=== PATIENT | male | born 1940 | race Two or more races ===

== ENCOUNTER 2021-08-21 09:11 | Inpatient (IN) | payer OTHER ==
[~2021-08-21] VITALS: Ht 175.3 cm; Wt 86.0 kg
[2021-08-21 10:16] LABS: Basophils # (auto) 0.1 10 ^3/uL (0-0.2); Basophils % (auto) 0.9 % (0.0-2.0); Eosinophils # (auto) 0.3 10 ^3/uL (0-0.8); Hematocrit 26.2 % (41.0-53.0); Hemoglobin 8.9 g/dL (13.5-17.5); Lymphocytes # (auto) 1.4 10 ^3/uL (0.4-5.4); Lymphocytes % (auto) 20.6 % (10.0-50.0); Mean Corpuscular Hemoglobin 29.9 pg (28.0-32.0); Mean Corpuscular Hgb Conc. 33.9 g/dL (32.0-36.0); Mean Corpuscular Volume 88.1 fL (80.0-100.0); Monocytes % (auto) 13.8 % (0.0-12.0); Neutrophils # (auto) 4.2 10 ^3/uL (1.6-8.6); Neutrophils % (auto) 60.7 % (37.0-80.0); Nucleated Red Blood Cells % 0.1 %; Red Blood Cells 2.98 10^6/uL (4.5-5.90); White Blood Cell 6.9 10^3/uL (4.4-10.8)
[2021-08-21 10:43] LABS: INR 1.05 (0.9-1.15); Partial Thromboplastin Time 33.5 sec (23.6-33.0)
[2021-08-21 11:01] LABS: Albumin 2.2 g/dL (3.4-5.0); Calcium 8.9 mg/dL (8.5-10.1); Magnesium 2.3 mg/dL (1.6-2.6); Potassium 4.2 mmol/L (3.5-5.1)
[2021-08-21 11:08] LABS: Bilirubin, Total 0.2 mg/dL (0.2-1.0); CRP High Sensitivity 7.78 mg/dL (< 0.3); Total Protein 6.2 g/dL (6.4-8.2)
[2021-08-21 11:12] LABS: Urine Bacteria NONE SEEN /hpf (None Seen); Urine Blood Negative /uL (Negative); Urine Specific Gravity 1.018 (1.001-1.035); Urine WBC 1 /hpf (0 - 3)
[2021-08-21 11:41] LABS: BUN/Creatinine Ratio 29.6
[2021-08-21] MEDS ORDERED: ENOXAPARIN SOD 40 MG/0.4 ML SYRINGE SC ONE (13:45)
[2021-08-21] MEDS ORDERED: MORPHINE SULFATE INJECTION 2 MG/ML SYRG IV PRN (13:45)
[2021-08-21] MEDS ORDERED: THIAMINE 100mg/ml INJ (200mg/2ml VIAL) IV ONE (13:45)
[2021-08-21] MEDS ORDERED: NITROGLYCERIN 0.4 MG SL TAB SL PRN (13:45)
[2021-08-21] MEDS ORDERED: PPN PER PHARMACY 0 ML IV SCH (13:45)
[2021-08-21] MEDS ORDERED: PIPERACILLIN-TAZOB 3.375GM 100 ML IV ONE (13:45)
[2021-08-21] MEDS ORDERED: DEXTROSE (50%) 50ML SYRG IV PRN (13:45)
[2021-08-21] MEDS ORDERED: HALOPERIDOL LACTATE 5 MG/ML INJ VIAL IM PRN (13:45)
[2021-08-21] MEDS ORDERED: LORazepam 2MG/ML-1ML VIAL IV ONE (14:00)
[2021-08-21] MEDS ORDERED: ACYCLOVIR 10MG/KG Q8HR PER RX 0 ML IV SCH (14:30)
[2021-08-21 14:49] LABS: Phosphorus 2.6 mg/dL (2.5-4.90)
[2021-08-21 15:11] LABS: Protein, CSF 55.8 mg/dL (15-45)
[2021-08-21 15:40] LABS: CSF White Blood Cells 1 CUMM (0-5)
[2021-08-21] MEDS: ACYCLOVIR SOD 50MG/ML 750 MG in SODIUM CHL 0.9% 250 ML IV SCH (17:51)
[2021-08-21] MEDS: ACCU-CHEK COMFORT CURVE STRIP VI SCH (18:31)
[2021-08-21] MEDS: InsuLIN REG 1unit/0.01ml Soln (100units/ml) SC SCH (18:32)
[2021-08-21] MEDS ORDERED: AMINO ACID INFUSION IN D10W 1,000 ML IV NR (20:00)
[2021-08-21] MEDS: LABETALOL HCL 5 MG/ML 4ML SYRINGE IV PRN (21:35)
[2021-08-21] MEDS: LORazepam 2MG/ML-1ML VIAL IV PRN (21:50)
[2021-08-21] MEDS: LINEZOLID 600MG/300ML 300 ML IV SCH (22:29)
[2021-08-22] MEDS: PIPERACILLIN-TAZOB 3.375GM 100 ML IV SCH ×4 (00:38→23:16)
[2021-08-22] MEDS: InsuLIN REG 1unit/0.01ml Soln (100units/ml) SC SCH ×4 (00:42→18:31)
[2021-08-22] MEDS: ACCU-CHEK COMFORT CURVE STRIP VI SCH ×4 (00:43→18:04)
[2021-08-22] MEDS: ACYCLOVIR SOD 50MG/ML 750 MG in SODIUM CHL 0.9% 250 ML IV SCH ×3 (03:30→17:47)
[2021-08-22 06:45] LABS: BUN/Creatinine Ratio 29.7; Calcium 8.5 mg/dL (8.5-10.1); Magnesium 2.1 mg/dL (1.6-2.6); Potassium 3.9 mmol/L (3.5-5.1)
[2021-08-22 06:48] LABS: Bilirubin, Total 0.2 mg/dL (0.2-1.0); Phosphorus 3.8 mg/dL (2.5-4.90); Total Protein 5.4 g/dL (6.4-8.2)
[2021-08-22] MEDS: FAMOTIDINE (10MG/ML) 2ML VL IV SCH (10:29)
[2021-08-22] MEDS: THIAMINE 100mg/ml INJ (200mg/2ml VIAL) IV SCH (10:30)
[2021-08-22] MEDS: ENOXAPARIN SOD 40 MG/0.4 ML SYRINGE SC SCH (10:32)
[2021-08-22] MEDS: hydrALAZINE HCL 20 MG/ML VL IV PRN (11:03)
[2021-08-22] MEDS: LINEZOLID 600MG/300ML 300 ML IV SCH ×2 (11:30→21:35)
[2021-08-22 12:16] LABS: % Iron Saturation 29.5 % (20-55)
[2021-08-22] MEDS: LABETALOL HCL 5 MG/ML 4ML SYRINGE IV PRN ×2 (15:29→17:02)
[2021-08-22] MEDS ORDERED: LABETALOL HCL 5 MG/ML 4ML SYRINGE IV PRN (16:30)
[2021-08-22] MEDS ORDERED: LABETALOL HCL 5 MG/ML 4ML SYRINGE IV ONE (16:30)
[2021-08-22 17:37] VITALS: BP 159/79
[2021-08-22] MEDS ORDERED: PPN PER PHARMACY IV NR ×8 (20:00)
[2021-08-22 22:00] VITALS: BP 157/71
[2021-08-22] MEDS: LORazepam 2MG/ML-1ML VIAL IV PRN (22:25)
[2021-08-23] MEDS: ACCU-CHEK COMFORT CURVE STRIP VI SCH ×4 (00:22→17:21)
[2021-08-23] MEDS: ACYCLOVIR SOD 50MG/ML 750 MG in SODIUM CHL 0.9% 250 ML IV SCH ×3 (00:22→18:11)
[2021-08-23] MEDS: InsuLIN REG 1unit/0.01ml Soln (100units/ml) SC SCH ×4 (00:23→17:22)
[2021-08-23 04:50] VITALS: BP 144/98
[2021-08-23] MEDS: PIPERACILLIN-TAZOB 3.375GM 100 ML IV SCH ×3 (05:54→22:59)
[2021-08-23 06:04] LABS: Basophils # (auto) 0 10 ^3/uL (0-0.2); Basophils % (auto) 0.5 % (0.0-2.0); Eosinophils # (auto) 0.4 10 ^3/uL (0-0.8); Eosinophils % (auto) 4.8 % (0.0-7.0); Hematocrit 25.8 % (41.0-53.0); Hemoglobin 8.8 g/dL (13.5-17.5); Lymphocytes # (auto) 1.4 10 ^3/uL (0.4-5.4); Lymphocytes % (auto) 17.7 % (10.0-50.0); Mean Corpuscular Hemoglobin 29.9 pg (28.0-32.0); Mean Corpuscular Hgb Conc. 33.9 g/dL (32.0-36.0); Mean Corpuscular Volume 88.1 fL (80.0-100.0); Monocytes # (auto) 1.1 10 ^3/uL (0-1.3); Monocytes % (auto) 14.4 % (0.0-12.0); Neutrophils # (auto) 4.8 10 ^3/uL (1.6-8.6); Neutrophils % (auto) 62.6 % (37.0-80.0); Red Blood Cells 2.93 10^6/uL (4.5-5.90); Red Cell Distribution Width 14.1 % (11.8-14.3); White Blood Cell 7.7 10^3/uL (4.4-10.8)
[2021-08-23 06:25] LABS: Albumin 2.2 g/dL (3.4-5.0); BUN/Creatinine Ratio 21.5; Calcium 8.6 mg/dL (8.5-10.1); Magnesium 1.6 mg/dL (1.6-2.6); Potassium 3.5 mmol/L (3.5-5.1)
[2021-08-23 06:27] LABS: Phosphorus 2.7 mg/dL (2.5-4.90)
[2021-08-23 09:00] VITALS: BP 144/53
[2021-08-23] MEDS: THIAMINE 100mg/ml INJ (200mg/2ml VIAL) IV SCH (09:27)
[2021-08-23] MEDS: FAMOTIDINE (10MG/ML) 2ML VL IV SCH (09:27)
[2021-08-23] MEDS: ENOXAPARIN SOD 40 MG/0.4 ML SYRINGE SC SCH (09:29)
[2021-08-23] MEDS ORDERED: MAGNESIUM SULFATE 1GM/100ML 100 ML IV ONE (10:00)
[2021-08-23] MEDS ORDERED: POTASSIUM PHOSPHATE 22 MEQ in SODIUM CHL 0.9% 100 ML IV ONE (10:30)
[2021-08-23] MEDS ORDERED: DEXTROSE (50%) 50ML SYRG IV SCH (12:00)
[2021-08-23] MEDS: LINEZOLID 600MG/300ML 300 ML IV SCH ×2 (12:47→21:38)
[2021-08-23 13:00] VITALS: BP 134/56
[2021-08-23] MEDS ORDERED: ACETAMINOPHEN 650 MG RECT SUPP PR PRN (13:00)
[2021-08-23] MEDS ORDERED: TPN PER PHARMACY 0 ML IV SCH (14:45)
[2021-08-23 17:00] VITALS: BP 145/69
[2021-08-23] MEDS: NYSTATIN (MOUTH-THROAT) 500,000 UNITS/5 ML SUSP MT SCH ×2 (18:11→22:01)
[2021-08-23] MEDS ORDERED: PPN PER PHARMACY IV NR ×11 (20:00)
[2021-08-23] MEDS: ATORVASTATIN 20 MG TAB PO SCH (21:43)
[2021-08-23 21:49] LABS: Cholesterol 108 mg/dL (< 200); HDL Cholesterol 22 mg/dL (40-59); LDL Cholesterol 75 mg/dL (< 100); Triglycerides 87 mg/dL (< 150)
[2021-08-23 21:51] VITALS: BP 169/76
[2021-08-23] MEDS ORDERED: INSULIN LANTUS (GLARGINE) 1 /0.01ml (100units/ml) SC SCH (22:00)
[2021-08-24] MEDS: ACCU-CHEK COMFORT CURVE STRIP VI SCH ×4 (00:16→19:14)
[2021-08-24] MEDS: InsuLIN REG 1unit/0.01ml Soln (100units/ml) SC SCH ×4 (00:18→18:00)
[2021-08-24] MEDS: ACYCLOVIR SOD 50MG/ML 750 MG in SODIUM CHL 0.9% 250 ML IV SCH ×3 (01:13→17:00)
[2021-08-24] MEDS: hydrALAZINE HCL 20 MG/ML VL IV PRN (01:37)
[2021-08-24 02:50] VITALS: BP 152/78
[2021-08-24] MEDS: LABETALOL HCL 5 MG/ML 4ML SYRINGE IV PRN (03:08)
[2021-08-24 04:55] VITALS: BP 152/72
[2021-08-24] MEDS: NYSTATIN (MOUTH-THROAT) 500,000 UNITS/5 ML SUSP MT SCH ×4 (06:08→22:30)
[2021-08-24 06:15] LABS: Albumin 2.2 g/dL (3.4-5.0); Calcium 8.5 mg/dL (8.5-10.1); Magnesium 1.7 mg/dL (1.6-2.6); Potassium 3.9 mmol/L (3.5-5.1)
[2021-08-24 06:20] LABS: BUN/Creatinine Ratio 18.3; Bilirubin, Total 0.6 mg/dL (0.2-1.0); Phosphorus 2.1 mg/dL (2.5-4.90); Total Protein 6.1 g/dL (6.4-8.2)
[2021-08-24] MEDS: PIPERACILLIN-TAZOB 3.375GM 100 ML IV SCH ×2 (07:10→15:35)
[2021-08-24 08:00] VITALS: BP 166/77
[2021-08-24] MEDS: ASPirin 81 mg TAB PO SCH (10:00)
[2021-08-24] MEDS: FAMOTIDINE (10MG/ML) 2ML VL IV SCH (11:05)
[2021-08-24] MEDS: THIAMINE 100mg/ml INJ (200mg/2ml VIAL) IV SCH (11:06)
[2021-08-24] MEDS: LINEZOLID 600MG/300ML 300 ML IV SCH ×2 (11:07→22:29)
[2021-08-24] MEDS: ENOXAPARIN SOD 40 MG/0.4 ML SYRINGE SC SCH (11:07)
[2021-08-24] MEDS ORDERED: SODIUM PHOSPHATES 20 MEQ in SODIUM CHL 0.9% 100 ML IV ONE (11:30)
[2021-08-24] MEDS ORDERED: FLUCONAZOLE 200MG/100ML 100 ML IV ONE (11:30)
[2021-08-24 11:44] VITALS: BP 146/63
[2021-08-24] MEDS: FLUCONAZOLE 200MG/100ML 100 ML IV SCH ×4 (12:00→20:16)
[2021-08-24 13:30] LABS: Folate (Folic Acid) 1.77 ng/mL (5.38-24)
[2021-08-24] MEDS ORDERED: MAGNESIUM SULFATE 1GM/100ML 100 ML IV ONE (14:00)
[2021-08-24 16:51] VITALS: BP 125/49
[2021-08-24 17:06] LABS: Cryptococcus Antigen CSF Negative (Negative)
[2021-08-24] MEDS ORDERED: [UNRECOGNIZED DRUG - OTHER] IV NR ×10 (20:00)
[2021-08-24] MEDS ORDERED: SODIUM CHLORIDE IV NR ×10 (20:00)
[2021-08-24] MEDS ORDERED: FAT EMULSION IV NR ×10 (20:00)
[2021-08-24] MEDS ORDERED: POTASSIUM ACETATE IV NR ×10 (20:00)
[2021-08-24 21:42] VITALS: BP 154/66
[2021-08-24] MEDS: ATORVASTATIN 20 MG TAB PO SCH (22:00)
[2021-08-24] MEDS: INSULIN LANTUS (GLARGINE) 1 /0.01ml (100units/ml) SC SCH (22:33)
[2021-08-25] MEDS: ACCU-CHEK COMFORT CURVE STRIP VI SCH ×4 (00:20→18:34)
[2021-08-25] MEDS: InsuLIN REG 1unit/0.01ml Soln (100units/ml) SC SCH ×4 (00:31→18:35)
[2021-08-25] MEDS: PIPERACILLIN-TAZOB 3.375GM 100 ML IV SCH ×3 (00:52→18:34)
[2021-08-25] MEDS: ACYCLOVIR SOD 50MG/ML 750 MG in SODIUM CHL 0.9% 250 ML IV SCH ×3 (04:18→17:00)
[2021-08-25 05:16] LABS: Hemoglobin 8.1 g/dL (13.5-17.5); Red Cell Distribution Width 14.2 % (11.8-14.3); White Blood Cell 9.1 10^3/uL (4.4-10.8)
[2021-08-25 05:20] LABS: Hematocrit 23.1 % (41.0-53.0); Mean Corpuscular Hemoglobin 30.6 pg (28.0-32.0); Mean Corpuscular Hgb Conc. 35.1 g/dL (32.0-36.0); Mean Corpuscular Volume 87.3 fL (80.0-100.0); Red Blood Cells 2.65 10^6/uL (4.5-5.90)
[2021-08-25 05:33] VITALS: BP 155/84
[2021-08-25 05:35] LABS: Basophils % (manual) 0 (0.0-2.0); Blast Cells 0; Metamyelocytes % 0; Myelocytes % 0; Promyelocytes % 0; Reactive Lymphocytes 0
[2021-08-25 05:41] LABS: Potassium 3.6 mmol/L (3.5-5.1)
[2021-08-25 05:50] LABS: Albumin 1.9 g/dL (3.4-5.0); BUN/Creatinine Ratio 17.1; Bilirubin, Total 0.3 mg/dL (0.2-1.0); Calcium 8.3 mg/dL (8.5-10.1); Magnesium 1.5 mg/dL (1.6-2.6); Phosphorus 2.1 mg/dL (2.5-4.90)
[2021-08-25] MEDS: NYSTATIN (MOUTH-THROAT) 500,000 UNITS/5 ML SUSP MT SCH ×4 (06:15→21:55)
[2021-08-25 06:54] LABS: Band Neutrophils % (manual) 1; Eosinophils % (manual) 1 (0-7); Lymphocytes % (manual) 22 (10.0-50.0); Monocytes % (manual) 12 (0-12)
[2021-08-25 08:00] VITALS: BP 161/79
[2021-08-25] MEDS: FLUCONAZOLE 200MG/100ML 100 ML IV SCH ×2 (08:39→11:07)
[2021-08-25] MEDS: FOLIC ACID 1 MG in D5W 5% 50 ML INJ SCH (08:40)
[2021-08-25] MEDS: THIAMINE 100mg/ml INJ (200mg/2ml VIAL) IV SCH (08:40)
[2021-08-25] MEDS: ASPirin 81 mg TAB PO SCH (08:41)
[2021-08-25] MEDS: ENOXAPARIN SOD 40 MG/0.4 ML SYRINGE SC SCH (08:41)
[2021-08-25] MEDS: FAMOTIDINE (10MG/ML) 2ML VL IV SCH (08:41)
[2021-08-25] MEDS: LINEZOLID 600MG/300ML 300 ML IV SCH ×2 (10:00→21:56)
[2021-08-25] MEDS ORDERED: SODIUM PHOSP 40 MEQ in D5W 5% 250 ML IV ONE (10:00)
[2021-08-25] MEDS ORDERED: LORazepam 2MG/ML-1ML VIAL IV ONE (11:30)
[2021-08-25] MEDS ORDERED: FUROSEMIDE 20 MG/2 ML VIAL IV ONE (11:45)
[2021-08-25] MEDS: MAGNESIUM SULFATE 1GM/100ML 100 ML IV SCH ×2 (12:43→14:02)
[2021-08-25 17:00] VITALS: BP 148/88
[2021-08-25] MEDS ORDERED: TPN PER PHARMACY IV NR ×10 (20:00)
[2021-08-25 21:41] VITALS: BP 148/71
[2021-08-25] MEDS: ATORVASTATIN 20 MG TAB PO SCH (21:45)
[2021-08-25] MEDS: INSULIN LANTUS (GLARGINE) 1 /0.01ml (100units/ml) SC SCH (21:57)
[2021-08-26] VITALS (18 sets, daily range): BP systolic 92–168; BP diastolic 41–71
[2021-08-26] MEDS: PIPERACILLIN-TAZOB 3.375GM 100 ML IV SCH ×4 (00:29→23:50)
[2021-08-26] MEDS: ACCU-CHEK COMFORT CURVE STRIP VI SCH ×5 (00:29→23:58)
[2021-08-26] MEDS: InsuLIN REG 1unit/0.01ml Soln (100units/ml) SC SCH ×4 (00:58→17:30)
[2021-08-26] MEDS: ACYCLOVIR SOD 50MG/ML 750 MG in SODIUM CHL 0.9% 250 ML IV SCH ×3 (01:00→17:29)
[2021-08-26 05:33] LABS: Basophils # (auto) 0.1 10 ^3/uL (0-0.2); Basophils % (auto) 1.8 % (0.0-2.0); Eosinophils # (auto) 0.3 10 ^3/uL (0-0.8); Eosinophils % (auto) 3.9 % (0.0-7.0); Hemoglobin 8.6 g/dL (13.5-17.5); Lymphocytes # (auto) 1.7 10 ^3/uL (0.4-5.4); Lymphocytes % (auto) 23.8 % (10.0-50.0); Mean Corpuscular Hemoglobin 29.9 pg (28.0-32.0); Mean Corpuscular Hgb Conc. 34.2 g/dL (32.0-36.0); Mean Corpuscular Volume 87.4 fL (80.0-100.0); Monocytes # (auto) 1.3 10 ^3/uL (0-1.3); Neutrophils # (auto) 3.7 10 ^3/uL (1.6-8.6); Neutrophils % (auto) 52.5 % (37.0-80.0); Nucleated Red Blood Cells % 0.3 %; Red Blood Cells 2.86 10^6/uL (4.5-5.90); Red Cell Distribution Width 14.5 % (11.8-14.3); White Blood Cell 7.1 10^3/uL (4.4-10.8)
[2021-08-26 06:01] LABS: Albumin 1.9 g/dL (3.4-5.0); BUN/Creatinine Ratio 21.9; Calcium 8.3 mg/dL (8.5-10.1); Magnesium 2.1 mg/dL (1.6-2.6); Potassium 3.4 mmol/L (3.5-5.1)
[2021-08-26 06:04] LABS: Bilirubin, Total 0.3 mg/dL (0.2-1.0); Phosphorus 2.8 mg/dL (2.5-4.90)
[2021-08-26 06:12] LABS: INR 1.1 (0.9-1.15); Partial Thromboplastin Time 28.2 sec (23.6-33.0)
[2021-08-26] MEDS: NYSTATIN (MOUTH-THROAT) 500,000 UNITS/5 ML SUSP MT SCH ×4 (06:20→21:25)
[2021-08-26] MEDS: FLUCONAZOLE 200MG/100ML 100 ML IV SCH ×2 (09:10→10:38)
[2021-08-26] MEDS: LINEZOLID 600MG/300ML 300 ML IV SCH ×2 (09:10→21:24)
[2021-08-26] MEDS: FOLIC ACID 1 MG in D5W 5% 50 ML INJ SCH (09:11)
[2021-08-26] MEDS: THIAMINE 100mg/ml INJ (200mg/2ml VIAL) IV SCH (09:11)
[2021-08-26] MEDS: ENOXAPARIN SOD 40 MG/0.4 ML SYRINGE SC SCH (09:12)
[2021-08-26] MEDS: ASPirin 81 mg TAB PO SCH (09:12)
[2021-08-26] MEDS: FAMOTIDINE (10MG/ML) 2ML VL IV SCH (09:16)
[2021-08-26] MEDS ORDERED: POTASSIUM CHL 20MEQ/100ML 100 ML IV ONE ×2 (10:15→10:45)
[2021-08-26] MEDS ORDERED: IODIXANOL 320MG/ML 100ML BTL IV ONE (11:50)
[2021-08-26] MEDS ORDERED: LIDOCAINE 2%HCL (LOCAL ANESTH.) INJ 10ml MDV ONE (11:50)
[2021-08-26] MEDS ORDERED: ANGIOMAX 250 MG VIAL IV ONE (11:52)
[2021-08-26] MEDS ORDERED: SODIUM CHL 0.9% 0 ML ONE (11:53)
[2021-08-26] MEDS ORDERED: fentaNYL CITRATE 100 MCG/2 ML VL ONE (11:53)
[2021-08-26] MEDS ORDERED: MIDAZOLAM HCL 2MG/2ML 2ml VIAL (1mg/ml) ONE ×2 (11:53→14:28)
[2021-08-26] MEDS ORDERED: hydrALAZINE HCL 20 MG/ML VL ONE (12:11)
[2021-08-26] MEDS ORDERED: TPN PER PHARMACY IV NR ×9 (20:00)
[2021-08-26] MEDS: SODIUM CHLOR 0.9% PF (SALINE LOCK) 10ML VIAL/SYR IV SCH (20:58)
[2021-08-26] MEDS: ATORVASTATIN 20 MG TAB PO SCH (21:25)
[2021-08-26] MEDS: INSULIN LANTUS (GLARGINE) 1 /0.01ml (100units/ml) SC SCH (22:58)
[2021-08-27] MEDS: InsuLIN REG 1unit/0.01ml Soln (100units/ml) SC SCH ×3 (00:17→12:34)
[2021-08-27] MEDS: ACYCLOVIR SOD 50MG/ML 750 MG in SODIUM CHL 0.9% 250 ML IV SCH ×3 (04:10→22:15)
[2021-08-27 05:00] VITALS: BP 124/64
[2021-08-27 06:00] LABS: Albumin 1.8 g/dL (3.4-5.0); Calcium 8.1 mg/dL (8.5-10.1); Magnesium 1.9 mg/dL (1.6-2.6); Potassium 3.8 mmol/L (3.5-5.1)
[2021-08-27] MEDS: NYSTATIN (MOUTH-THROAT) 500,000 UNITS/5 ML SUSP MT SCH ×4 (06:00→22:36)
[2021-08-27 06:04] LABS: BUN/Creatinine Ratio 21.6; Bilirubin, Total 0.2 mg/dL (0.2-1.0); Phosphorus 3.1 mg/dL (2.5-4.90); Total Protein 5.5 g/dL (6.4-8.2)
[2021-08-27] MEDS: SODIUM CHLOR 0.9% PF (SALINE LOCK) 10ML VIAL/SYR IV SCH ×2 (06:28→14:11)
[2021-08-27] MEDS: ACCU-CHEK COMFORT CURVE STRIP VI SCH ×2 (06:29→12:33)
[2021-08-27] MEDS: PIPERACILLIN-TAZOB 3.375GM 100 ML IV SCH (06:30)
[2021-08-27 07:50] VITALS: BP 132/65
[2021-08-27] MEDS: FLUCONAZOLE 200MG/100ML 100 ML IV SCH ×2 (08:59→11:53)
[2021-08-27] MEDS: THIAMINE 100mg/ml INJ (200mg/2ml VIAL) IV SCH (09:34)
[2021-08-27] MEDS: FAMOTIDINE (10MG/ML) 2ML VL IV SCH (09:34)
[2021-08-27] MEDS: ENOXAPARIN SOD 40 MG/0.4 ML SYRINGE SC SCH (09:35)
[2021-08-27] MEDS: LINEZOLID 600MG/300ML 300 ML IV SCH ×2 (09:35→22:16)
[2021-08-27] MEDS: ASPirin 81 mg TAB PO SCH (09:35)
[2021-08-27] MEDS ORDERED: SODIUM FERR GLUC 62.5MG/5ML 125 MG in SODIUM CHL 0.9% 100 ML IV ONE (11:45)
[2021-08-27 12:00] VITALS: BP 136/76
[2021-08-27] MEDS ORDERED: SODIUM FERR GLUC 62.5MG/5ML 125 MG in SODIUM CHL 0.9% 100 ML IV SCH (12:00)
[2021-08-27] MEDS: FOLIC ACID 1 MG in D5W 5% 50 ML INJ SCH (12:17)
[2021-08-27 16:51] VITALS: BP 148/64
[2021-08-27] MEDS: LORazepam 2MG/ML-1ML VIAL IV PRN (19:47)
[2021-08-27 20:00] VITALS: BP 112/50
[2021-08-27] MEDS ORDERED: TPN PER PHARMACY IV NR ×9 (20:00)
[2021-08-27] MEDS: INSULIN LANTUS (GLARGINE) 1 /0.01ml (100units/ml) SC SCH (22:35)
[2021-08-28] MEDS: SODIUM CHLOR 0.9% PF (SALINE LOCK) 10ML VIAL/SYR IV SCH ×4 (04:11→22:44)
[2021-08-28] MEDS: ACYCLOVIR SOD 50MG/ML 750 MG in SODIUM CHL 0.9% 250 ML IV SCH ×3 (06:45→21:01)
[2021-08-28] MEDS: NYSTATIN (MOUTH-THROAT) 500,000 UNITS/5 ML SUSP MT SCH ×4 (06:46→22:00)
[2021-08-28 09:00] VITALS: BP 144/67
[2021-08-28] MEDS: ASPirin 81 mg TAB PO SCH (10:07)
[2021-08-28] MEDS: FLUCONAZOLE 200MG/100ML 100 ML IV SCH ×2 (10:07→11:35)
[2021-08-28] MEDS: THIAMINE 100mg/ml INJ (200mg/2ml VIAL) IV SCH (10:07)
[2021-08-28] MEDS: FAMOTIDINE (10MG/ML) 2ML VL IV SCH (10:07)
[2021-08-28] MEDS: LINEZOLID 600MG/300ML 300 ML IV SCH ×2 (10:07→22:44)
[2021-08-28] MEDS: ENOXAPARIN SOD 40 MG/0.4 ML SYRINGE SC SCH (10:08)
[2021-08-28] MEDS: SODIUM FERR GLUC 62.5MG/5ML 125 MG in SODIUM CHL 0.9% 100 ML IV SCH (12:08)
[2021-08-28] MEDS: FOLIC ACID 1 MG in D5W 5% 50 ML INJ SCH (12:32)
[2021-08-28] MEDS: CEFTRIAXONE SODIUM 2 GM in D5W 5% 50 ML IV SCH (12:43)
[2021-08-28 13:00] VITALS: BP 153/84
[2021-08-28 17:00] VITALS: BP 151/86
[2021-08-28 22:00] VITALS: BP 156/87
[2021-08-29 05:00] VITALS: BP 182/90
[2021-08-29 05:17] LABS: Basophils # (auto) 0.1 10 ^3/uL (0-0.2); Basophils % (auto) 0.8 % (0.0-2.0); Eosinophils # (auto) 0.4 10 ^3/uL (0-0.8); Eosinophils % (auto) 5.7 % (0.0-7.0); Hematocrit 24.5 % (41.0-53.0); Hemoglobin 8.5 g/dL (13.5-17.5); Lymphocytes % (auto) 27.8 % (10.0-50.0); Mean Corpuscular Hemoglobin 30.4 pg (28.0-32.0); Mean Corpuscular Hgb Conc. 34.8 g/dL (32.0-36.0); Mean Corpuscular Volume 87.2 fL (80.0-100.0); Monocytes % (auto) 14.5 % (0.0-12.0); Neutrophils # (auto) 3.6 10 ^3/uL (1.6-8.6); Neutrophils % (auto) 51.2 % (37.0-80.0); Nucleated Red Blood Cells % 0.1 %; Red Blood Cells 2.81 10^6/uL (4.5-5.90); Red Cell Distribution Width 14.2 % (11.8-14.3)
[2021-08-29] MEDS: ACYCLOVIR SOD 50MG/ML 750 MG in SODIUM CHL 0.9% 250 ML IV SCH ×3 (05:30→21:48)
[2021-08-29] MEDS: hydrALAZINE HCL 20 MG/ML VL IV PRN ×2 (05:30→17:10)
[2021-08-29 05:40] LABS: Albumin 2.2 g/dL (3.4-5.0); Calcium 8.8 mg/dL (8.5-10.1); Potassium 3.6 mmol/L (3.5-5.1)
[2021-08-29] MEDS: NYSTATIN (MOUTH-THROAT) 500,000 UNITS/5 ML SUSP MT SCH ×4 (05:41→21:48)
[2021-08-29 05:42] LABS: BUN/Creatinine Ratio 12.1
[2021-08-29 05:45] LABS: Bilirubin, Total 0.2 mg/dL (0.2-1.0); Total Protein 6.3 g/dL (6.4-8.2)
[2021-08-29] MEDS: SODIUM CHLOR 0.9% PF (SALINE LOCK) 10ML VIAL/SYR IV SCH ×3 (06:00→21:48)
[2021-08-29] MEDS: FLUCONAZOLE 200MG/100ML 100 ML IV SCH ×2 (08:23→09:23)
[2021-08-29 08:36] VITALS: BP 168/85
[2021-08-29] MEDS: CEFTRIAXONE SODIUM 2 GM in D5W 5% 50 ML IV SCH (09:50)
[2021-08-29] MEDS: FOLIC ACID 1 MG in D5W 5% 50 ML INJ SCH (09:50)
[2021-08-29] MEDS: LINEZOLID 600MG/300ML 300 ML IV SCH ×2 (09:52→23:35)
[2021-08-29] MEDS: ENOXAPARIN SOD 40 MG/0.4 ML SYRINGE SC SCH (09:52)
[2021-08-29] MEDS: ASPirin 81 mg TAB PO SCH (09:52)
[2021-08-29] MEDS: FAMOTIDINE (10MG/ML) 2ML VL IV SCH (09:52)
[2021-08-29] MEDS: THIAMINE 100mg/ml INJ (200mg/2ml VIAL) IV SCH (09:52)
[2021-08-29 12:48] VITALS: BP 161/91
[2021-08-29] MEDS: SODIUM FERR GLUC 62.5MG/5ML 125 MG in SODIUM CHL 0.9% 100 ML IV SCH (13:01)
[2021-08-29 16:58] VITALS: BP 178/62
[2021-08-29 17:36] VITALS: BP 152/72
[2021-08-29 21:43] VITALS: BP 158/83
[2021-08-30 05:00] VITALS: BP 156/81
[2021-08-30] MEDS: ACYCLOVIR SOD 50MG/ML 750 MG in SODIUM CHL 0.9% 250 ML IV SCH ×3 (05:59→21:10)
[2021-08-30] MEDS: NYSTATIN (MOUTH-THROAT) 500,000 UNITS/5 ML SUSP MT SCH ×4 (05:59→21:13)
[2021-08-30] MEDS: SODIUM CHLOR 0.9% PF (SALINE LOCK) 10ML VIAL/SYR IV SCH ×3 (05:59→21:14)
[2021-08-30] MEDS: FLUCONAZOLE 200MG/100ML 100 ML IV SCH ×2 (07:32→08:41)
[2021-08-30 09:00] VITALS: BP 154/68
[2021-08-30] MEDS: FAMOTIDINE (10MG/ML) 2ML VL IV SCH (09:38)
[2021-08-30] MEDS: LINEZOLID 600MG/300ML 300 ML IV SCH ×2 (09:38→22:24)
[2021-08-30] MEDS: ASPirin 81 mg TAB PO SCH (09:38)
[2021-08-30] MEDS: CEFTRIAXONE SODIUM 2 GM in D5W 5% 50 ML IV SCH (09:38)
[2021-08-30] MEDS: THIAMINE 100mg/ml INJ (200mg/2ml VIAL) IV SCH (09:39)
[2021-08-30] MEDS: ENOXAPARIN SOD 40 MG/0.4 ML SYRINGE SC SCH (09:39)
[2021-08-30] MEDS: FOLIC ACID 1 MG in D5W 5% 50 ML INJ SCH (09:39)
[2021-08-30] MEDS: SODIUM FERR GLUC 62.5MG/5ML 125 MG in SODIUM CHL 0.9% 100 ML IV SCH (12:07)
[2021-08-30 13:00] VITALS: BP 145/77
[2021-08-30 17:00] VITALS: BP 117/75
[2021-08-30 22:00] VITALS: BP 145/71
[2021-08-31] VITALS (10 sets, daily range): BP systolic 137–163; BP diastolic 74–90
[2021-08-31] MEDS: ACYCLOVIR SOD 50MG/ML 750 MG in SODIUM CHL 0.9% 250 ML IV SCH ×3 (05:35→21:09)
[2021-08-31] MEDS: NYSTATIN (MOUTH-THROAT) 500,000 UNITS/5 ML SUSP MT SCH ×4 (05:35→21:08)
[2021-08-31] MEDS: SODIUM CHLOR 0.9% PF (SALINE LOCK) 10ML VIAL/SYR IV SCH ×3 (05:36→21:09)
[2021-08-31] MEDS: FLUCONAZOLE 200MG/100ML 100 ML IV SCH ×2 (08:30→10:30)
[2021-08-31] MEDS: FOLIC ACID 1 MG in D5W 5% 50 ML INJ SCH (09:32)
[2021-08-31] MEDS: FAMOTIDINE (10MG/ML) 2ML VL IV SCH (09:32)
[2021-08-31] MEDS: THIAMINE 100mg/ml INJ (200mg/2ml VIAL) IV SCH (09:33)
[2021-08-31] MEDS: ENOXAPARIN SOD 40 MG/0.4 ML SYRINGE SC SCH (09:35)
[2021-08-31 09:51] LABS: Basophils # (auto) 0.1 10 ^3/uL (0-0.2); Basophils % (auto) 1.2 % (0.0-2.0); Eosinophils # (auto) 0.3 10 ^3/uL (0-0.8); Hemoglobin 7.2 g/dL (13.5-17.5); Mean Corpuscular Hgb Conc. 34.3 g/dL (32.0-36.0); Monocytes # (auto) 0.7 10 ^3/uL (0-1.3); Neutrophils # (auto) 4.2 10 ^3/uL (1.6-8.6); Nucleated Red Blood Cells % 0.1 %; Red Blood Cells 2.38 10^6/uL (4.5-5.90)
[2021-08-31 09:52] LABS: Eosinophils % (auto) 4.1 % (0.0-7.0); Hematocrit 20.9 % (41.0-53.0); Lymphocytes # (auto) 1.9 10 ^3/uL (0.4-5.4); Lymphocytes % (auto) 26.8 % (10.0-50.0); Mean Corpuscular Hemoglobin 30.1 pg (28.0-32.0); Mean Corpuscular Volume 87.9 fL (80.0-100.0); Monocytes % (auto) 9.7 % (0.0-12.0); Neutrophils % (auto) 58.2 % (37.0-80.0); Red Cell Distribution Width 14.2 % (11.8-14.3); White Blood Cell 7.1 10^3/uL (4.4-10.8)
[2021-08-31 10:13] LABS: INR 1.24 (0.9-1.15); Partial Thromboplastin Time 36.8 sec (23.6-33.0)
[2021-08-31] MEDS: ASPirin 81 mg TAB PO SCH (10:30)
[2021-08-31] MEDS: CEFTRIAXONE SODIUM 2 GM in D5W 5% 50 ML IV SCH (10:30)
[2021-08-31 10:32] LABS: BUN/Creatinine Ratio 7.2; Calcium 7.8 mg/dL (8.5-10.1); Potassium 3.2 mmol/L (3.5-5.1)
[2021-08-31] MEDS ORDERED: DEXTROSE (50%) 50ML SYRG IV PRN (12:15)
[2021-08-31] MEDS ORDERED: POTASSIUM CHL 20 Meq TABLET PO ONE (12:15)
[2021-08-31] MEDS: SODIUM FERR GLUC 62.5MG/5ML 125 MG in SODIUM CHL 0.9% 100 ML IV SCH (12:30)
[2021-08-31] MEDS ORDERED: POTASSIUM EFFERVESENT TAB 25 MEQ PO ONE (13:15)
[2021-08-31] MEDS: LINEZOLID 600MG/300ML 300 ML IV SCH (13:30)
[2021-08-31] MEDS: hydrALAZINE HCL 20 MG/ML VL IV PRN (14:00)
[2021-08-31] MEDS: ACCU-CHEK COMFORT CURVE STRIP VI SCH (18:22)
[2021-08-31] MEDS: InsuLIN REG 1unit/0.01ml Soln (100units/ml) SC SCH (18:23)
[2021-08-31] MEDS: ATORVASTATIN 20 MG TAB PO SCH (21:09)
[2021-09-01] VITALS (14 sets, daily range): BP systolic 127–160; BP diastolic 70–88
[2021-09-01] MEDS: ACCU-CHEK COMFORT CURVE STRIP VI SCH ×5 (00:24→23:45)
[2021-09-01] MEDS: LINEZOLID 600MG/300ML 300 ML IV SCH ×2 (01:27→14:30)
[2021-09-01] MEDS: ACYCLOVIR SOD 50MG/ML 750 MG in SODIUM CHL 0.9% 250 ML IV SCH ×3 (04:38→20:27)
[2021-09-01] MEDS: SODIUM CHLOR 0.9% PF (SALINE LOCK) 10ML VIAL/SYR IV SCH ×3 (05:38→21:04)
[2021-09-01] MEDS: NYSTATIN (MOUTH-THROAT) 500,000 UNITS/5 ML SUSP MT SCH ×5 (05:42→21:04)
[2021-09-01] MEDS: InsuLIN REG 1unit/0.01ml Soln (100units/ml) SC SCH ×5 (05:42→23:45)
[2021-09-01 07:29] LABS: Albumin 1.9 g/dL (3.4-5.0); Bilirubin, Direct 0.1 mg/dL (0-0.2)
[2021-09-01 07:32] LABS: Bilirubin, Total 0.5 mg/dL (0.2-1.0); Total Protein 5.7 g/dL (6.4-8.2)
[2021-09-01 08:10] LABS: Basophils # (auto) 0.1 10 ^3/uL (0-0.2); Basophils % (auto) 1.3 % (0.0-2.0); Eosinophils # (auto) 0.3 10 ^3/uL (0-0.8); Hematocrit 27.6 % (41.0-53.0); Hemoglobin 9.6 g/dL (13.5-17.5); Lymphocytes % (auto) 25.6 % (10.0-50.0); Mean Corpuscular Hemoglobin 30.3 pg (28.0-32.0); Mean Corpuscular Hgb Conc. 34.7 g/dL (32.0-36.0); Mean Corpuscular Volume 87.4 fL (80.0-100.0); Monocytes # (auto) 0.7 10 ^3/uL (0-1.3); Monocytes % (auto) 9.3 % (0.0-12.0); Neutrophils # (auto) 4.7 10 ^3/uL (1.6-8.6); Neutrophils % (auto) 59.8 % (37.0-80.0); Nucleated Red Blood Cells % 0.1 %; Red Blood Cells 3.15 10^6/uL (4.5-5.90); White Blood Cell 7.9 10^3/uL (4.4-10.8)
[2021-09-01 08:27] LABS: Albumin 1.9 g/dL (3.4-5.0); BUN/Creatinine Ratio 7.4; Potassium 3.2 mmol/L (3.5-5.1)
[2021-09-01 08:29] LABS: Bilirubin, Total 0.4 mg/dL (0.2-1.0); Total Protein 5.6 g/dL (6.4-8.2)
[2021-09-01 08:31] LABS: INR 1.27 (0.9-1.15); Partial Thromboplastin Time 37.3 sec (23.6-33.0)
[2021-09-01] MEDS: CEFTRIAXONE SODIUM 2 GM in D5W 5% 50 ML IV SCH (09:30)
[2021-09-01] MEDS: THIAMINE HCL 100 MG TAB PO SCH (09:31)
[2021-09-01] MEDS: FOLIC ACID 1 MG TAB PO SCH (09:31)
[2021-09-01] MEDS: ASPirin 81 mg TAB PO SCH (09:31)
[2021-09-01] MEDS: ENOXAPARIN SOD 40 MG/0.4 ML SYRINGE SC SCH (09:31)
[2021-09-01] MEDS: FLUCONAZOLE 100 MG TAB PO SCH (09:31)
[2021-09-01] MEDS ORDERED: FOLIC ACID 1 MG in D5W 5% 50 ML INJ SCH (11:00)
[2021-09-01] MEDS ORDERED: amLODIPine BESYLATE 5 MG TAB PO ONE (12:15)
[2021-09-01] MEDS ORDERED: POTASSIUM EFFERVESENT TAB 25 MEQ PO ONE (12:15)
[2021-09-01] MEDS ORDERED: PANTOPRAZOLE 40 MG TAB PO ONE (12:30)
[2021-09-01] MEDS: Glucerna Carbsteady SHAKE Vanilla 8oz PO SCH (17:44)
[2021-09-01] MEDS: FERROUS SULFATE 325mg EC TAB PO SCH (18:30)
[2021-09-01] MEDS: ATORVASTATIN 20 MG TAB PO SCH (21:04)
[2021-09-02] MEDS: LINEZOLID 600MG/300ML 300 ML IV SCH (01:35)
[2021-09-02] MEDS: ACYCLOVIR SOD 50MG/ML 750 MG in SODIUM CHL 0.9% 250 ML IV SCH ×3 (04:54→21:00)
[2021-09-02] MEDS: NYSTATIN (MOUTH-THROAT) 500,000 UNITS/5 ML SUSP MT SCH ×4 (05:01→22:00)
[2021-09-02] MEDS: ACCU-CHEK COMFORT CURVE STRIP VI SCH ×3 (05:02→17:40)
[2021-09-02] MEDS: SODIUM CHLOR 0.9% PF (SALINE LOCK) 10ML VIAL/SYR IV SCH ×3 (05:02→22:00)
[2021-09-02] MEDS: InsuLIN REG 1unit/0.01ml Soln (100units/ml) SC SCH ×3 (05:02→17:43)
[2021-09-02 05:09] VITALS: BP 158/77
[2021-09-02 08:00] VITALS: BP 150/83
[2021-09-02] MEDS: Glucerna Carbsteady SHAKE Vanilla 8oz PO SCH ×3 (08:53→18:15)
[2021-09-02] MEDS: FERROUS SULFATE 325mg EC TAB PO SCH ×2 (08:53→18:00)
[2021-09-02] MEDS: ASPirin 81 mg TAB PO SCH (08:56)
[2021-09-02] MEDS: cefTRIAXone 1GM/50ML D5W 50 ML IV SCH (08:56)
[2021-09-02] MEDS: FOLIC ACID 1 MG TAB PO SCH (08:56)
[2021-09-02] MEDS: FLUCONAZOLE 100 MG TAB PO SCH (08:57)
[2021-09-02] MEDS: THIAMINE HCL 100 MG TAB PO SCH (08:57)
[2021-09-02] MEDS: amLODIPine BESYLATE 5 MG TAB PO SCH (08:58)
[2021-09-02] MEDS: ENOXAPARIN SOD 40 MG/0.4 ML SYRINGE SC SCH (08:58)
[2021-09-02] MEDS ORDERED: PANTOPRAZOLE 40 MG TAB PO SCH (10:00)
[2021-09-02 13:00] VITALS: BP 168/80
[2021-09-02] MEDS: hydrALAZINE HCL 20 MG/ML VL IV PRN (13:09)
[2021-09-02 14:09] VITALS: BP 141/73
[2021-09-02 17:00] VITALS: BP 132/63
[2021-09-02 21:35] VITALS: BP 146/86
[2021-09-02] MEDS: ATORVASTATIN 20 MG TAB PO SCH (22:00)
[2021-09-02] MEDS: LINEZOLID 600MG TABLET PO SCH (22:00)
[2021-09-03] MEDS: NYSTATIN (MOUTH-THROAT) 500,000 UNITS/5 ML SUSP MT SCH ×3 (04:39→20:50)
[2021-09-03] MEDS: ACYCLOVIR SOD 50MG/ML 750 MG in SODIUM CHL 0.9% 250 ML IV SCH ×3 (04:39→20:57)
[2021-09-03] MEDS: SODIUM CHLOR 0.9% PF (SALINE LOCK) 10ML VIAL/SYR IV SCH ×3 (04:39→20:58)
[2021-09-03 05:09] VITALS: BP 135/72
[2021-09-03 05:28] LABS: Basophils # (auto) 0 10 ^3/uL (0-0.2); Basophils % (auto) 0.8 % (0.0-2.0); Eosinophils # (auto) 0.2 10 ^3/uL (0-0.8); Hematocrit 26.5 % (41.0-53.0); Hemoglobin 9.2 g/dL (13.5-17.5); Lymphocytes # (auto) 1.7 10 ^3/uL (0.4-5.4); Lymphocytes % (auto) 27.4 % (10.0-50.0); Mean Corpuscular Hemoglobin 30.3 pg (28.0-32.0); Mean Corpuscular Hgb Conc. 34.6 g/dL (32.0-36.0); Mean Corpuscular Volume 87.3 fL (80.0-100.0); Monocytes # (auto) 0.6 10 ^3/uL (0-1.3); Monocytes % (auto) 9.6 % (0.0-12.0); Neutrophils # (auto) 3.6 10 ^3/uL (1.6-8.6); Neutrophils % (auto) 59.2 % (37.0-80.0); Nucleated Red Blood Cells % 0.2 %; Red Blood Cells 3.03 10^6/uL (4.5-5.90); Red Cell Distribution Width 14.1 % (11.8-14.3); White Blood Cell 6.1 10^3/uL (4.4-10.8)
[2021-09-03 05:50] LABS: Potassium 3.2 mmol/L (3.5-5.1)
[2021-09-03] MEDS: InsuLIN REG 1unit/0.01ml Soln (100units/ml) SC SCH ×4 (05:58→17:54)
[2021-09-03] MEDS: ACCU-CHEK COMFORT CURVE STRIP VI SCH ×4 (05:58→17:26)
[2021-09-03 06:05] LABS: Albumin 1.8 g/dL (3.4-5.0); BUN/Creatinine Ratio 11.1; Bilirubin, Total 0.7 mg/dL (0.2-1.0); Total Protein 5.6 g/dL (6.4-8.2)
[2021-09-03] MEDS: Glucerna Carbsteady SHAKE Vanilla 8oz PO SCH ×3 (08:00→21:09)
[2021-09-03] MEDS: FOLIC ACID 1 MG TAB PO SCH (10:00)
[2021-09-03] MEDS ORDERED: PANTOPRAZOLE 40 MG/10 ML VIAL INJ IV ONE (10:45)
[2021-09-03] MEDS: ENOXAPARIN SOD 40 MG/0.4 ML SYRINGE SC SCH (11:20)
[2021-09-03] MEDS: cefTRIAXone 1GM/50ML D5W 50 ML IV SCH (11:20)
[2021-09-03] MEDS: POTASSIUM CHL 20MEQ/100ML 100 ML IV SCH ×2 (12:19→14:29)
[2021-09-03] MEDS: THIAMINE HCL 100 MG TAB PO SCH (12:20)
[2021-09-03] MEDS: amLODIPine BESYLATE 5 MG TAB PO SCH (12:21)
[2021-09-03] MEDS: SUCRALFATE 1 GM/10 ML ORAL SUSP PO SCH ×2 (13:02→17:20)
[2021-09-03] MEDS: LINEZOLID 600MG TABLET PO SCH ×2 (13:03→20:52)
[2021-09-03 13:19] VITALS: BP 138/77
[2021-09-03 17:00] VITALS: BP 143/70
[2021-09-03] MEDS: ATORVASTATIN 20 MG TAB PO SCH (20:51)
[2021-09-03] MEDS: PANTOPRAZOLE 40 MG/10 ML VIAL INJ IV SCH (20:57)
[2021-09-03 21:48] VITALS: BP 132/63
[2021-09-04] MEDS: ACCU-CHEK COMFORT CURVE STRIP VI SCH ×5 (00:04→23:45)
[2021-09-04] MEDS: InsuLIN REG 1unit/0.01ml Soln (100units/ml) SC SCH ×5 (00:04→23:45)
[2021-09-04 04:37] VITALS: BP 148/77
[2021-09-04] MEDS: ACYCLOVIR SOD 50MG/ML 750 MG in SODIUM CHL 0.9% 250 ML IV SCH ×3 (04:47→20:33)
[2021-09-04] MEDS: NYSTATIN (MOUTH-THROAT) 500,000 UNITS/5 ML SUSP MT SCH ×4 (04:47→21:06)
[2021-09-04] MEDS: SODIUM CHLOR 0.9% PF (SALINE LOCK) 10ML VIAL/SYR IV SCH ×3 (04:47→21:05)
[2021-09-04] MEDS: SUCRALFATE 1 GM/10 ML ORAL SUSP PO SCH ×3 (04:48→15:46)
[2021-09-04] MEDS: Glucerna Carbsteady SHAKE Vanilla 8oz PO SCH ×3 (08:00→17:54)
[2021-09-04] MEDS: hydrALAZINE HCL 20 MG/ML VL IV PRN (08:39)
[2021-09-04] MEDS: cefTRIAXone 1GM/50ML D5W 50 ML IV SCH (08:45)
[2021-09-04] MEDS: THIAMINE HCL 100 MG TAB PO SCH (08:46)
[2021-09-04] MEDS: PANTOPRAZOLE 40 MG/10 ML VIAL INJ IV SCH ×2 (08:46→21:05)
[2021-09-04] MEDS: FOLIC ACID 1 MG TAB PO SCH (08:47)
[2021-09-04] MEDS: ENOXAPARIN SOD 40 MG/0.4 ML SYRINGE SC SCH (08:47)
[2021-09-04] MEDS: amLODIPine BESYLATE 5 MG TAB PO SCH (08:47)
[2021-09-04] MEDS: LINEZOLID 600MG TABLET PO SCH (08:58)
[2021-09-04 09:00] VITALS: BP 132/63
[2021-09-04] MEDS ORDERED: PANTOPRAZOLE 40 MG/10 ML VIAL INJ IV SCH (10:00)
[2021-09-04 12:14] VITALS: BP 131/68
[2021-09-04] MEDS ORDERED: POTASSIUM EFFERVESENT TAB 25 MEQ PO ONE (14:30)
[2021-09-04 16:56] VITALS: BP 134/70
[2021-09-04] MEDS: ATORVASTATIN 20 MG TAB PO SCH (21:06)
[2021-09-04] MEDS: LINEZOLID 600MG/300ML 300 ML IV SCH (21:06)
[2021-09-04 22:00] VITALS: BP 133/61
[2021-09-05 05:00] VITALS: BP 147/69
[2021-09-05] MEDS: SODIUM CHLOR 0.9% PF (SALINE LOCK) 10ML VIAL/SYR IV SCH ×3 (05:48→21:41)
[2021-09-05] MEDS: NYSTATIN (MOUTH-THROAT) 500,000 UNITS/5 ML SUSP MT SCH ×2 (05:48→12:21)
[2021-09-05] MEDS: ACCU-CHEK COMFORT CURVE STRIP VI SCH ×3 (05:48→17:17)
[2021-09-05] MEDS: ACYCLOVIR SOD 50MG/ML 750 MG in SODIUM CHL 0.9% 250 ML IV SCH ×3 (05:48→20:27)
[2021-09-05] MEDS: SUCRALFATE 1 GM/10 ML ORAL SUSP PO SCH ×3 (05:49→17:00)
[2021-09-05] MEDS: InsuLIN REG 1unit/0.01ml Soln (100units/ml) SC SCH ×4 (05:51→23:29)
[2021-09-05 06:24] LABS: Basophils # (auto) 0 10 ^3/uL (0-0.2); Basophils % (auto) 0.9 % (0.0-2.0); Eosinophils # (auto) 0.3 10 ^3/uL (0-0.8); Eosinophils % (auto) 5.5 % (0.0-7.0); Hematocrit 27.3 % (41.0-53.0); Hemoglobin 9.2 g/dL (13.5-17.5); Lymphocytes # (auto) 1.8 10 ^3/uL (0.4-5.4); Mean Corpuscular Hemoglobin 30.2 pg (28.0-32.0); Mean Corpuscular Hgb Conc. 33.8 g/dL (32.0-36.0); Mean Corpuscular Volume 89.4 fL (80.0-100.0); Monocytes # (auto) 0.5 10 ^3/uL (0-1.3); Monocytes % (auto) 9.5 % (0.0-12.0); Neutrophils # (auto) 2.9 10 ^3/uL (1.6-8.6); Neutrophils % (auto) 52.1 % (37.0-80.0); Nucleated Red Blood Cells % 0.1 %; Red Blood Cells 3.06 10^6/uL (4.5-5.90); Red Cell Distribution Width 13.8 % (11.8-14.3); White Blood Cell 5.6 10^3/uL (4.4-10.8)
[2021-09-05 06:40] LABS: Calcium 8.2 mg/dL (8.5-10.1); Potassium 3.6 mmol/L (3.5-5.1)
[2021-09-05] MEDS: Glucerna Carbsteady SHAKE Vanilla 8oz PO SCH ×3 (08:00→17:17)
[2021-09-05 09:13] VITALS: BP 135/72
[2021-09-05] MEDS: THIAMINE HCL 100 MG TAB PO SCH (10:11)
[2021-09-05] MEDS: amLODIPine BESYLATE 5 MG TAB PO SCH (10:12)
[2021-09-05] MEDS: FOLIC ACID 1 MG TAB PO SCH (10:12)
[2021-09-05] MEDS: PANTOPRAZOLE 40 MG/10 ML VIAL INJ IV SCH ×2 (10:13→21:41)
[2021-09-05] MEDS: cefTRIAXone 1GM/50ML D5W 50 ML IV SCH (10:13)
[2021-09-05] MEDS: LINEZOLID 600MG/300ML 300 ML IV SCH ×2 (10:13→21:41)
[2021-09-05] MEDS: ENOXAPARIN SOD 40 MG/0.4 ML SYRINGE SC SCH (10:13)
[2021-09-05 15:10] VITALS: BP 133/68
[2021-09-05 16:30] VITALS: BP 130/61
[2021-09-05] MEDS: ATORVASTATIN 20 MG TAB PO SCH (21:41)
[2021-09-05 22:00] VITALS: BP 143/71
[2021-09-06] MEDS: ACYCLOVIR SOD 50MG/ML 750 MG in SODIUM CHL 0.9% 250 ML IV SCH ×3 (04:54→20:53)
[2021-09-06 05:00] VITALS: BP 143/67
[2021-09-06] MEDS: ACCU-CHEK COMFORT CURVE STRIP VI SCH ×5 (05:50→23:33)
[2021-09-06] MEDS: SODIUM CHLOR 0.9% PF (SALINE LOCK) 10ML VIAL/SYR IV SCH ×3 (05:50→22:05)
[2021-09-06] MEDS: InsuLIN REG 1unit/0.01ml Soln (100units/ml) SC SCH ×4 (05:50→23:26)
[2021-09-06] MEDS: SUCRALFATE 1 GM/10 ML ORAL SUSP PO SCH ×3 (06:45→17:10)
[2021-09-06] MEDS: Glucerna Carbsteady SHAKE Vanilla 8oz PO SCH ×3 (08:00→16:43)
[2021-09-06 08:30] VITALS: BP 149/77
[2021-09-06] MEDS: LINEZOLID 600MG/300ML 300 ML IV SCH ×2 (09:41→21:59)
[2021-09-06] MEDS: PANTOPRAZOLE 40 MG/10 ML VIAL INJ IV SCH ×2 (09:41→21:53)
[2021-09-06] MEDS: THIAMINE HCL 100 MG TAB PO SCH (09:41)
[2021-09-06] MEDS: cefTRIAXone 1GM/50ML D5W 50 ML IV SCH (09:41)
[2021-09-06] MEDS: amLODIPine BESYLATE 5 MG TAB PO SCH (09:43)
[2021-09-06] MEDS: FOLIC ACID 1 MG TAB PO SCH (09:43)
[2021-09-06] MEDS: ENOXAPARIN SOD 40 MG/0.4 ML SYRINGE SC SCH (09:44)
[2021-09-06 12:30] VITALS: BP 140/69
[2021-09-06] MEDS ORDERED: FUROSEMIDE 40 MG/4 ML VIAL IV ONE (13:00)
[2021-09-06 16:54] VITALS: BP 147/80
[2021-09-06] MEDS: ATORVASTATIN 20 MG TAB PO SCH (21:55)
[2021-09-06 22:53] VITALS: BP 130/61
[2021-09-07 03:55] VITALS: BP 142/67
[2021-09-07 04:43] VITALS: BP 146/77
[2021-09-07] MEDS: ACCU-CHEK COMFORT CURVE STRIP VI SCH ×3 (05:51→17:54)
[2021-09-07] MEDS: ACYCLOVIR SOD 50MG/ML 750 MG in SODIUM CHL 0.9% 250 ML IV SCH ×3 (05:51→21:48)
[2021-09-07] MEDS: InsuLIN REG 1unit/0.01ml Soln (100units/ml) SC SCH ×3 (05:51→17:56)
[2021-09-07] MEDS: SODIUM CHLOR 0.9% PF (SALINE LOCK) 10ML VIAL/SYR IV SCH ×3 (05:51→21:48)
[2021-09-07] MEDS: SUCRALFATE 1 GM/10 ML ORAL SUSP PO SCH ×3 (06:40→17:00)
[2021-09-07 09:00] VITALS: BP 146/64
[2021-09-07] MEDS: cefTRIAXone 1GM/50ML D5W 50 ML IV SCH (09:35)
[2021-09-07] MEDS: PANTOPRAZOLE 40 MG/10 ML VIAL INJ IV SCH (09:35)
[2021-09-07] MEDS: THIAMINE HCL 100 MG TAB PO SCH (09:35)
[2021-09-07] MEDS: ENOXAPARIN SOD 40 MG/0.4 ML SYRINGE SC SCH (09:36)
[2021-09-07] MEDS: amLODIPine BESYLATE 5 MG TAB PO SCH (09:37)
[2021-09-07] MEDS: LINEZOLID 600MG/300ML 300 ML IV SCH ×2 (09:37→21:55)
[2021-09-07] MEDS: FOLIC ACID 1 MG TAB PO SCH (09:37)
[2021-09-07] MEDS: Glucerna Carbsteady SHAKE Vanilla 8oz PO SCH ×3 (09:47→17:54)
[2021-09-07 12:59] VITALS: BP 101/55
[2021-09-07 16:32] VITALS: BP 133/72
[2021-09-07] MEDS: PANTOPRAZOLE 40 MG TAB PO SCH (21:48)
[2021-09-07] MEDS: ATORVASTATIN 20 MG TAB PO SCH (21:48)
[2021-09-07 22:00] VITALS: BP 134/68
[2021-09-08] MEDS: ACCU-CHEK COMFORT CURVE STRIP VI SCH ×4 (00:17→18:34)
[2021-09-08] MEDS: InsuLIN REG 1unit/0.01ml Soln (100units/ml) SC SCH ×4 (00:19→18:00)
[2021-09-08 05:00] VITALS: BP 103/67
[2021-09-08] MEDS: ACYCLOVIR SOD 50MG/ML 750 MG in SODIUM CHL 0.9% 250 ML IV SCH ×3 (05:09→21:06)
[2021-09-08] MEDS: SODIUM CHLOR 0.9% PF (SALINE LOCK) 10ML VIAL/SYR IV SCH ×3 (05:09→21:06)
[2021-09-08] MEDS: SUCRALFATE 1 GM/10 ML ORAL SUSP PO SCH ×3 (06:04→18:33)
[2021-09-08] MEDS: Glucerna Carbsteady SHAKE Vanilla 8oz PO SCH ×3 (08:00→18:00)
[2021-09-08 09:00] VITALS: BP 163/83
[2021-09-08] MEDS: amLODIPine BESYLATE 5 MG TAB PO SCH (09:55)
[2021-09-08] MEDS: FOLIC ACID 1 MG TAB PO SCH (09:55)
[2021-09-08] MEDS: THIAMINE HCL 100 MG TAB PO SCH (09:55)
[2021-09-08] MEDS: LINEZOLID 600MG/300ML 300 ML IV SCH ×2 (09:56→21:07)
[2021-09-08] MEDS: cefTRIAXone 1GM/50ML D5W 50 ML IV SCH (09:56)
[2021-09-08] MEDS: FLORASTOR (S. BOULARDII) 250 MG CAP PO SCH (09:56)
[2021-09-08] MEDS: PANTOPRAZOLE 40 MG TAB PO SCH ×2 (09:56→21:06)
[2021-09-08] MEDS: ENOXAPARIN SOD 40 MG/0.4 ML SYRINGE SC SCH (09:56)
[2021-09-08 13:00] VITALS: BP 140/69
[2021-09-08 17:00] VITALS: BP 133/68
[2021-09-08] MEDS: ATORVASTATIN 20 MG TAB PO SCH (21:07)
[2021-09-08 22:00] VITALS: BP 138/61
[2021-09-09] MEDS: ACCU-CHEK COMFORT CURVE STRIP VI SCH ×5 (00:07→23:47)
[2021-09-09] MEDS: InsuLIN REG 1unit/0.01ml Soln (100units/ml) SC SCH ×5 (00:20→23:35)
[2021-09-09 05:00] VITALS: BP 143/67
[2021-09-09] MEDS: ACYCLOVIR SOD 50MG/ML 750 MG in SODIUM CHL 0.9% 250 ML IV SCH ×3 (05:20→20:19)
[2021-09-09] MEDS: SODIUM CHLOR 0.9% PF (SALINE LOCK) 10ML VIAL/SYR IV SCH ×3 (05:22→20:19)
[2021-09-09] MEDS: SUCRALFATE 1 GM/10 ML ORAL SUSP PO SCH ×3 (06:20→17:00)
[2021-09-09 06:50] LABS: Basophils # (auto) 0 10 ^3/uL (0-0.2); Basophils % (auto) 0.6 % (0.0-2.0); Eosinophils # (auto) 0.4 10 ^3/uL (0-0.8); Eosinophils % (auto) 7.9 % (0.0-7.0); Hematocrit 27.9 % (41.0-53.0); Hemoglobin 9.5 g/dL (13.5-17.5); Lymphocytes # (auto) 1.7 10 ^3/uL (0.4-5.4); Lymphocytes % (auto) 31.8 % (10.0-50.0); Mean Corpuscular Hemoglobin 30.5 pg (28.0-32.0); Mean Corpuscular Hgb Conc. 33.9 g/dL (32.0-36.0); Mean Corpuscular Volume 89.8 fL (80.0-100.0); Monocytes # (auto) 0.3 10 ^3/uL (0-1.3); Monocytes % (auto) 5.8 % (0.0-12.0); Neutrophils # (auto) 2.8 10 ^3/uL (1.6-8.6); Neutrophils % (auto) 53.9 % (37.0-80.0); Nucleated Red Blood Cells % 0.2 %; Red Blood Cells 3.11 10^6/uL (4.5-5.90); Red Cell Distribution Width 14.2 % (11.8-14.3); White Blood Cell 5.3 10^3/uL (4.4-10.8)
[2021-09-09 07:00] LABS: Potassium 3.2 mmol/L (3.5-5.1)
[2021-09-09 07:12] LABS: BUN/Creatinine Ratio 6.9; Calcium 8.1 mg/dL (8.5-10.1)
[2021-09-09] MEDS: cefTRIAXone 1GM/50ML D5W 50 ML IV SCH (09:07)
[2021-09-09] MEDS: LINEZOLID 600MG/300ML 300 ML IV SCH (09:07)
[2021-09-09] MEDS: Glucerna Carbsteady SHAKE Vanilla 8oz PO SCH ×3 (09:08→18:00)
[2021-09-09] MEDS: THIAMINE HCL 100 MG TAB PO SCH (09:08)
[2021-09-09] MEDS: PANTOPRAZOLE 40 MG TAB PO SCH ×2 (09:08→20:45)
[2021-09-09] MEDS: FLORASTOR (S. BOULARDII) 250 MG CAP PO SCH (09:08)
[2021-09-09] MEDS: FOLIC ACID 1 MG TAB PO SCH (09:08)
[2021-09-09] MEDS: amLODIPine BESYLATE 5 MG TAB PO SCH (09:09)
[2021-09-09] MEDS: ENOXAPARIN SOD 40 MG/0.4 ML SYRINGE SC SCH (09:09)
[2021-09-09 13:00] VITALS: BP 131/70
[2021-09-09 17:00] VITALS: BP 145/80
[2021-09-09 20:32] LABS: INR 1.19 (0.9-1.15); Partial Thromboplastin Time 31.9 sec (23.6-33.0)
[2021-09-09] MEDS: LINEZOLID 600MG TABLET PO SCH (20:45)
[2021-09-09] MEDS: ATORVASTATIN 20 MG TAB PO SCH (20:45)
[2021-09-09 22:00] VITALS: BP 142/75
[2021-09-10] MEDS: ACYCLOVIR SOD 50MG/ML 750 MG in SODIUM CHL 0.9% 250 ML IV SCH (03:51)
[2021-09-10 05:01] VITALS: BP 148/74
[2021-09-10] MEDS: SODIUM CHLOR 0.9% PF (SALINE LOCK) 10ML VIAL/SYR IV SCH ×3 (05:23→22:18)
[2021-09-10] MEDS: ACCU-CHEK COMFORT CURVE STRIP VI SCH ×3 (05:51→17:52)
[2021-09-10] MEDS: InsuLIN REG 1unit/0.01ml Soln (100units/ml) SC SCH ×3 (05:51→17:52)
[2021-09-10 06:21] LABS: Basophils # (auto) 0 10 ^3/uL (0-0.2); Basophils % (auto) 0.7 % (0.0-2.0); Eosinophils # (auto) 0.4 10 ^3/uL (0-0.8); Eosinophils % (auto) 6.9 % (0.0-7.0); Lymphocytes # (auto) 1.7 10 ^3/uL (0.4-5.4); Mean Corpuscular Hemoglobin 30.7 pg (28.0-32.0); Mean Corpuscular Hgb Conc. 34.5 g/dL (32.0-36.0); Mean Corpuscular Volume 89.2 fL (80.0-100.0); Monocytes # (auto) 0.4 10 ^3/uL (0-1.3); Monocytes % (auto) 7.2 % (0.0-12.0); Neutrophils # (auto) 2.8 10 ^3/uL (1.6-8.6); Neutrophils % (auto) 53.2 % (37.0-80.0); Red Blood Cells 3.25 10^6/uL (4.5-5.90); Red Cell Distribution Width 14.1 % (11.8-14.3); White Blood Cell 5.3 10^3/uL (4.4-10.8)
[2021-09-10] MEDS: SUCRALFATE 1 GM/10 ML ORAL SUSP PO SCH ×3 (07:00→17:00)
[2021-09-10] MEDS: Glucerna Carbsteady SHAKE Vanilla 8oz PO SCH ×3 (08:59→17:51)
[2021-09-10 09:00] VITALS: BP 138/74
[2021-09-10] MEDS: cefTRIAXone 1GM/50ML D5W 50 ML IV SCH (09:00)
[2021-09-10] MEDS: LINEZOLID 600MG TABLET PO SCH ×2 (10:00→22:19)
[2021-09-10] MEDS: THIAMINE HCL 100 MG TAB PO SCH (10:04)
[2021-09-10] MEDS: FOLIC ACID 1 MG TAB PO SCH (10:04)
[2021-09-10] MEDS: FLORASTOR (S. BOULARDII) 250 MG CAP PO SCH (10:04)
[2021-09-10] MEDS: ENOXAPARIN SOD 40 MG/0.4 ML SYRINGE SC SCH (10:05)
[2021-09-10] MEDS: PANTOPRAZOLE 40 MG TAB PO SCH ×2 (10:05→22:19)
[2021-09-10] MEDS: amLODIPine BESYLATE 5 MG TAB PO SCH (10:07)
[2021-09-10] MEDS ORDERED: ONDANSETRON ODT 4 MG TAB PO ONE (12:15)
[2021-09-10 13:00] VITALS: BP 131/69
[2021-09-10 17:00] VITALS: BP 137/71
[2021-09-10 22:00] VITALS: BP 125/67
[2021-09-10] MEDS: ATORVASTATIN 20 MG TAB PO SCH (22:18)
[2021-09-11] MEDS: ACCU-CHEK COMFORT CURVE STRIP VI SCH ×4 (00:20→17:47)
[2021-09-11] MEDS: HYDROcodone-ACET 5/325MG TAB PO PRN ×3 (00:20→21:26)
[2021-09-11 05:00] VITALS: BP 118/60
[2021-09-11 06:10] LABS: Basophils # (auto) 0 10 ^3/uL (0-0.2); Basophils % (auto) 0.6 % (0.0-2.0); Eosinophils # (auto) 0.2 10 ^3/uL (0-0.8); Eosinophils % (auto) 5.2 % (0.0-7.0); Hematocrit 26.9 % (41.0-53.0); Hemoglobin 9.1 g/dL (13.5-17.5); Lymphocytes % (auto) 42.1 % (10.0-50.0); Mean Corpuscular Hemoglobin 30.4 pg (28.0-32.0); Mean Corpuscular Hgb Conc. 33.8 g/dL (32.0-36.0); Monocytes # (auto) 0.4 10 ^3/uL (0-1.3); Monocytes % (auto) 8.7 % (0.0-12.0); Neutrophils # (auto) 2.1 10 ^3/uL (1.6-8.6); Neutrophils % (auto) 43.4 % (37.0-80.0); Nucleated Red Blood Cells % 0.2 %; Red Blood Cells 2.99 10^6/uL (4.5-5.90); Red Cell Distribution Width 13.7 % (11.8-14.3); White Blood Cell 4.7 10^3/uL (4.4-10.8)
[2021-09-11] MEDS: SODIUM CHLOR 0.9% PF (SALINE LOCK) 10ML VIAL/SYR IV SCH ×3 (06:51→21:32)
[2021-09-11] MEDS: InsuLIN REG 1unit/0.01ml Soln (100units/ml) SC SCH ×4 (06:51→17:49)
[2021-09-11] MEDS: SUCRALFATE 1 GM/10 ML ORAL SUSP PO SCH ×4 (07:00→17:47)
[2021-09-11 09:00] VITALS: BP 116/66
[2021-09-11] MEDS: THIAMINE HCL 100 MG TAB PO SCH ×2 (10:00→10:18)
[2021-09-11] MEDS: ENOXAPARIN SOD 40 MG/0.4 ML SYRINGE SC SCH (10:14)
[2021-09-11] MEDS: LINEZOLID 600MG TABLET PO SCH ×2 (10:17→21:26)
[2021-09-11] MEDS: FLORASTOR (S. BOULARDII) 250 MG CAP PO SCH (10:19)
[2021-09-11] MEDS: cefTRIAXone 1GM/50ML D5W 50 ML IV SCH (10:19)
[2021-09-11] MEDS: PANTOPRAZOLE 40 MG TAB PO SCH ×2 (10:19→21:26)
[2021-09-11] MEDS: amLODIPine BESYLATE 5 MG TAB PO SCH (10:19)
[2021-09-11] MEDS: Glucerna Carbsteady SHAKE Vanilla 8oz PO SCH ×3 (10:20→17:47)
[2021-09-11] MEDS: ONDANSETRON HCL 4 MG/2 ML VIAL IV PRN (12:38)
[2021-09-11 13:00] VITALS: BP 134/72
[2021-09-11 17:00] VITALS: BP 128/68
[2021-09-11] MEDS: ATORVASTATIN 20 MG TAB PO SCH (21:25)
[2021-09-11 22:00] VITALS: BP 157/81
[2021-09-11] MEDS ORDERED: TEMAZEPAM 15 MG CAP PO ONE (22:30)
[2021-09-12] MEDS: ACCU-CHEK COMFORT CURVE STRIP VI SCH ×4 (00:01→17:42)
[2021-09-12 05:00] VITALS: BP 121/63
[2021-09-12] MEDS: SODIUM CHLOR 0.9% PF (SALINE LOCK) 10ML VIAL/SYR IV SCH ×3 (05:34→22:18)
[2021-09-12] MEDS: InsuLIN REG 1unit/0.01ml Soln (100units/ml) SC SCH ×4 (06:06→17:43)
[2021-09-12] MEDS: Glucerna Carbsteady SHAKE Vanilla 8oz PO SCH ×3 (07:47→17:43)
[2021-09-12] MEDS: SUCRALFATE 1 GM/10 ML ORAL SUSP PO SCH ×3 (07:58→16:53)
[2021-09-12 08:57] VITALS: BP 137/72
[2021-09-12] MEDS: THIAMINE HCL 100 MG TAB PO SCH (08:57)
[2021-09-12] MEDS: cefTRIAXone 1GM/50ML D5W 50 ML IV SCH (08:57)
[2021-09-12] MEDS: ASPirin-EC 81 mg tab PO SCH (08:57)
[2021-09-12] MEDS: FLORASTOR (S. BOULARDII) 250 MG CAP PO SCH (08:58)
[2021-09-12] MEDS: PANTOPRAZOLE 40 MG TAB PO SCH ×2 (08:59→22:19)
[2021-09-12] MEDS: amLODIPine BESYLATE 5 MG TAB PO SCH (08:59)
[2021-09-12] MEDS: LINEZOLID 600MG TABLET PO SCH ×2 (09:00→22:20)
[2021-09-12] MEDS: ENOXAPARIN SOD 40 MG/0.4 ML SYRINGE SC SCH (09:00)
[2021-09-12 13:00] VITALS: BP 119/67
[2021-09-12 17:00] VITALS: BP 138/75
[2021-09-12 22:00] VITALS: BP 140/70
[2021-09-12] MEDS: ATORVASTATIN 20 MG TAB PO SCH (22:19)
[2021-09-12] MEDS: methylPREDNISolone SOD SUCC 40 MG/ML VL IV SCH (22:19)
[2021-09-12] MEDS: HYDROcodone-ACET 5/325MG TAB PO PRN (22:51)
[2021-09-13] MEDS: ACCU-CHEK COMFORT CURVE STRIP VI SCH ×4 (00:52→18:20)
[2021-09-13] MEDS: InsuLIN REG 1unit/0.01ml Soln (100units/ml) SC SCH ×4 (00:53→18:18)
[2021-09-13 05:00] VITALS: BP 133/73
[2021-09-13 06:01] LABS: Basophils # (auto) 0 10 ^3/uL (0-0.2); Basophils % (auto) 0.4 % (0.0-2.0); Eosinophils # (auto) 0 10 ^3/uL (0-0.8); Eosinophils % (auto) 0.2 % (0.0-7.0); Hemoglobin 10.3 g/dL (13.5-17.5); Lymphocytes # (auto) 0.4 10 ^3/uL (0.4-5.4); Mean Corpuscular Hemoglobin 30.9 pg (28.0-32.0); Mean Corpuscular Hgb Conc. 34.2 g/dL (32.0-36.0); Mean Corpuscular Volume 90.5 fL (80.0-100.0); Monocytes # (auto) 0 10 ^3/uL (0-1.3); Monocytes % (auto) 0.8 % (0.0-12.0); Neutrophils # (auto) 3.1 10 ^3/uL (1.6-8.6); Neutrophils % (auto) 86.6 % (37.0-80.0); Nucleated Red Blood Cells % 0.2 %; Red Blood Cells 3.32 10^6/uL (4.5-5.90); Red Cell Distribution Width 14.1 % (11.8-14.3); White Blood Cell 3.6 10^3/uL (4.4-10.8)
[2021-09-13] MEDS: SODIUM CHLOR 0.9% PF (SALINE LOCK) 10ML VIAL/SYR IV SCH ×3 (06:12→22:13)
[2021-09-13 06:15] LABS: Albumin 2.3 g/dL (3.4-5.0); Calcium 8.2 mg/dL (8.5-10.1); Potassium 4.4 mmol/L (3.5-5.1)
[2021-09-13 06:17] LABS: BUN/Creatinine Ratio 13.9
[2021-09-13 06:20] LABS: Bilirubin, Total 0.3 mg/dL (0.2-1.0); Total Protein 6.1 g/dL (6.4-8.2)
[2021-09-13] MEDS: SUCRALFATE 1 GM/10 ML ORAL SUSP PO SCH ×3 (07:00→17:00)
[2021-09-13 08:30] VITALS: BP 131/59
[2021-09-13] MEDS: cefTRIAXone 1GM/50ML D5W 50 ML IV SCH (09:42)
[2021-09-13] MEDS: ENOXAPARIN SOD 40 MG/0.4 ML SYRINGE SC SCH (09:43)
[2021-09-13] MEDS: ASPirin-EC 81 mg tab PO SCH (09:44)
[2021-09-13] MEDS: THIAMINE HCL 100 MG TAB PO SCH (09:44)
[2021-09-13] MEDS: methylPREDNISolone SOD SUCC 40 MG/ML VL IV SCH ×2 (09:44→22:14)
[2021-09-13] MEDS: FLORASTOR (S. BOULARDII) 250 MG CAP PO SCH (09:44)
[2021-09-13] MEDS: PANTOPRAZOLE 40 MG TAB PO SCH ×2 (09:44→22:14)
[2021-09-13] MEDS: amLODIPine BESYLATE 5 MG TAB PO SCH (09:44)
[2021-09-13] MEDS: Glucerna Carbsteady SHAKE Vanilla 8oz PO SCH ×3 (09:46→18:19)
[2021-09-13] MEDS: LINEZOLID 600MG TABLET PO SCH ×2 (09:49→22:14)
[2021-09-13 12:30] VITALS: BP 131/64
[2021-09-13 17:00] VITALS: BP 124/62
[2021-09-13 22:00] VITALS: BP 132/66
[2021-09-13] MEDS: ATORVASTATIN 20 MG TAB PO SCH (22:14)
[2021-09-14] MEDS: InsuLIN REG 1unit/0.01ml Soln (100units/ml) SC SCH ×4 (00:02→17:49)
[2021-09-14 05:00] VITALS: BP 133/69
[2021-09-14] MEDS: SODIUM CHLOR 0.9% PF (SALINE LOCK) 10ML VIAL/SYR IV SCH ×3 (06:03→21:41)
[2021-09-14] MEDS: ACCU-CHEK COMFORT CURVE STRIP VI SCH ×4 (06:03→17:38)
[2021-09-14] MEDS: SUCRALFATE 1 GM/10 ML ORAL SUSP PO SCH ×4 (06:04→17:37)
[2021-09-14 08:40] VITALS: BP 141/79
[2021-09-14] MEDS: methylPREDNISolone SOD SUCC 40 MG/ML VL IV SCH ×2 (10:13→21:41)
[2021-09-14] MEDS: FLORASTOR (S. BOULARDII) 250 MG CAP PO SCH (10:13)
[2021-09-14] MEDS: ASPirin-EC 81 mg tab PO SCH (10:13)
[2021-09-14] MEDS: THIAMINE HCL 100 MG TAB PO SCH (10:13)
[2021-09-14] MEDS: cefTRIAXone 1GM/50ML D5W 50 ML IV SCH (10:13)
[2021-09-14] MEDS: PANTOPRAZOLE 40 MG TAB PO SCH ×2 (10:19→21:42)
[2021-09-14] MEDS: amLODIPine BESYLATE 5 MG TAB PO SCH (10:19)
[2021-09-14] MEDS: ENOXAPARIN SOD 40 MG/0.4 ML SYRINGE SC SCH (10:20)
[2021-09-14] MEDS: LINEZOLID 600MG TABLET PO SCH ×2 (10:20→21:42)
[2021-09-14] MEDS: Glucerna Carbsteady SHAKE Vanilla 8oz PO SCH ×3 (10:21→17:37)
[2021-09-14] MEDS: HYDROcodone-ACET 5/325MG TAB PO PRN ×2 (10:55→20:53)
[2021-09-14 12:35] VITALS: BP 135/60
[2021-09-14] MEDS: ONDANSETRON HCL 4 MG/2 ML VIAL IV PRN (15:00)
[2021-09-14 16:01] VITALS: BP 140/73
[2021-09-14] MEDS: ATORVASTATIN 20 MG TAB PO SCH (21:42)
[2021-09-14 22:00] VITALS: BP 133/45
[2021-09-15] MEDS: ACCU-CHEK COMFORT CURVE STRIP VI SCH ×3 (00:06→13:48)
[2021-09-15] MEDS: InsuLIN REG 1unit/0.01ml Soln (100units/ml) SC SCH ×3 (00:14→13:49)
[2021-09-15 05:00] VITALS: BP 130/64
[2021-09-15] MEDS: SUCRALFATE 1 GM/10 ML ORAL SUSP PO SCH ×3 (06:36→17:00)
[2021-09-15] MEDS: SODIUM CHLOR 0.9% PF (SALINE LOCK) 10ML VIAL/SYR IV SCH ×2 (06:36→13:49)
[2021-09-15 08:40] VITALS: BP 130/69
[2021-09-15] MEDS: cefTRIAXone 1GM/50ML D5W 50 ML IV SCH (09:21)
[2021-09-15] MEDS: Glucerna Carbsteady SHAKE Vanilla 8oz PO SCH ×2 (09:21→13:48)
[2021-09-15] MEDS: FLORASTOR (S. BOULARDII) 250 MG CAP PO SCH (09:23)
[2021-09-15] MEDS: THIAMINE HCL 100 MG TAB PO SCH (09:23)
[2021-09-15] MEDS: methylPREDNISolone SOD SUCC 40 MG/ML VL IV SCH (09:23)
[2021-09-15] MEDS: amLODIPine BESYLATE 5 MG TAB PO SCH (09:25)
[2021-09-15] MEDS: PANTOPRAZOLE 40 MG TAB PO SCH (09:25)
[2021-09-15] MEDS: LINEZOLID 600MG TABLET PO SCH (09:25)
[2021-09-15] MEDS: ENOXAPARIN SOD 40 MG/0.4 ML SYRINGE SC SCH (09:25)
[2021-09-15] MEDS: HYDROcodone-ACET 5/325MG TAB PO PRN (09:42)
[2021-09-15] MEDS: ASPirin-EC 81 mg tab PO SCH (09:43)
[2021-09-15 13:00] VITALS: BP 120/66
[2021-09-15 16:35] VITALS: BP 120/66
[2021-09-15 17:00] VITALS: BP 131/68
== END 2021-09-15 17:31 | disposition home or self-care (01) | DRG 871 ==
LOC: ER 09:11 → EDBD 09:11 → TELE 13:31 → TELE-WESTW 08-22 08:15
PROVIDERS: ADMIT Internal Medicine; ATTEND Internal Medicine
PROC: 009U3ZX Drainage of Spinal Canal, Percutaneous Approach, Diagnostic (ICD-10-PCS; principal; 2021-08-21)
PROC: B245ZZ4 Ultrasonography of Left Heart, Transesophageal (ICD-10-PCS; 2021-08-26)
PROC: B41G1ZZ Fluoroscopy of Left Lower Extremity Arteries using Low Osmolar Contrast (ICD-10-PCS; 2021-08-26)
PROC: B41F1ZZ Fluoroscopy of Right Lower Extremity Arteries using Low Osmolar Contrast (ICD-10-PCS; 2021-08-26)
PROC: 30233N1 Transfusion of Nonautologous Red Blood Cells into Peripheral Vein, Percutaneous Approach (ICD-10-PCS; 2021-08-31)
PROC: 05HA33Z Insertion of Infusion Device into Left Brachial Vein, Percutaneous Approach (ICD-10-PCS; 2021-09-10)
PROC: B54NZZA Ultrasonography of Left Upper Extremity Veins, Guidance (ICD-10-PCS; 2021-09-10)
DX: A41.9 Sepsis, unspecified organism (principal); E43 Unspecified severe protein-calorie malnutrition; B00.4 Herpesviral encephalitis; I50.33 Acute on chronic diastolic (congestive) heart failure; G92.8 Other toxic encephalopathy; K85.90 Acute pancreatitis without necrosis or infection, unspecified; M86.171 Other acute osteomyelitis, right ankle and foot; J91.8 Pleural effusion in other conditions classified elsewhere; Z96.659 Presence of unspecified artificial knee joint; Z20.822 Contact with and (suspected) exposure to COVID-19; E11.621 Type 2 diabetes mellitus with foot ulcer; E11.42 Type 2 diabetes mellitus with diabetic polyneuropathy; E66.9 Obesity, unspecified; D63.8 Anemia in other chronic diseases classified elsewhere; E03.9 Hypothyroidism, unspecified; E11.51 Type 2 diabetes mellitus with diabetic peripheral angiopathy without gangrene; E11.69 Type 2 diabetes mellitus with other specified complication; E53.8 Deficiency of other specified B group vitamins; F03.90 Unspecified dementia, unspecified severity, without behavioral disturbance, psychotic disturbance, mood disturbance, and anxiety; L97.519 Non-pressure chronic ulcer of other part of right foot with unspecified severity; M19.90 Unspecified osteoarthritis, unspecified site; I10 Essential (primary) hypertension; S90.851A Superficial foreign body, right foot, initial encounter; Z79.899 Other long term (current) drug therapy; Z79.82 Long term (current) use of aspirin; Z83.3 Family history of diabetes mellitus; Z86.16 Personal history of COVID-19; Z86.73 Personal history of transient ischemic attack (TIA), and cerebral infarction without residual deficits; Z87.11 Personal history of peptic ulcer disease; Z68.27 Body mass index [BMI] 27.0-27.9, adult
CPT/HCPCS: 36415; 70450; 70545; 70551; 71045; 71250; 73630; 73700; 74176; 75716; 78315; 80048; 80053; 80061; 80069; 80076; 81001; 82140; 82270; 82533; 82565; 82595; 82607; 82746; 82945; 82962; 83036; 83520; 83540; 83550; 83605; 83690; 83735; 83880; 84100; 84157; 84402; 84403; 84443; 84478; 84484; 85007; 85025; 85027; 85610; 85652; 85730; 86141; 86256; 86850; 86900; 86901; 86920; 87040; 87070; 87081; 87086; 87205; 87529; 87899; 89051; 93005; 93306; 93312; 93886; 93925; 93970; 95819; 96366; 96372; 96375; 97110; 97116; 97163; 97530; 99152; C9113; G0378; J0696; J1450; J1815; J2001; J2250; J2405; J2543; J3480; J3490; J7060; J7131; Q0162; Q9967

== ENCOUNTER → 2021-09-30 | Outpatient (CLI) | payer OTHER, MEDICARE | END | disposition home or self-care (01) | LOC: LAB 11:22 | PROVIDERS: ATTEND Internal Medicine | DX: E11.22 Type 2 diabetes mellitus with diabetic chronic kidney disease (principal) | CPT/HCPCS: 36415; 80048; 82306 ==